=== PATIENT | female | born 2000 | race Hispanic/Latino ===

== ENCOUNTER 2018-11-08 08:39 | Day surgery (SDC) | payer MEDICAID ==
[~2018-11-08] VITALS: Ht 154.9 cm; Wt 52.2 kg
[~2018-11-08 08:39] MED LIST: LINA145C PO; PROPOFOL 10 MG/ML 20ML VIAL IV ONE; SODIUM CHLORIDE 0.9% 1000ML 1,000 ML IV ONE
[2018-11-08 09:23] VITALS: BP 104/73
[2018-11-08 10:02] VITALS: BP 86/43
[2018-11-08 10:07] VITALS: BP 108/46
[2018-11-08 10:12] VITALS: BP 99/57
[2018-11-08 10:17] VITALS: BP 98/62
== END 2018-11-08 10:40 | disposition home or self-care (01) ==
LOC: ENDO 08:39 → DAH 08:39 → ENDO 10:40
PROVIDERS: ATTEND Internal Medicine Gastroenterology
DX: K63.5 Polyp of colon (principal); K29.50 Unspecified chronic gastritis without bleeding; J45.909 Unspecified asthma, uncomplicated; K59.00 Constipation, unspecified; F17.210 Nicotine dependence, cigarettes, uncomplicated; Z79.899 Other long term (current) drug therapy; Z98.890 Other specified postprocedural states; Z72.89 Other problems related to lifestyle; Z82.5 Family history of asthma and other chronic lower respiratory diseases
CPT/HCPCS: 36415; 43239; 45380; 84703; 88305; A4606; J2704; J7030

== ENCOUNTER 2019-02-20 08:31 | Day surgery (SDC) | payer MEDICAID ==
[~2019-02-20] VITALS: Ht 154.9 cm; Wt 52.6 kg
[2019-02-20] VITALS (7 sets, daily range): BP systolic 99–105; BP diastolic 52–77
[~2019-02-20 08:31] MED LIST changes: -PROPOFOL 10 MG/ML 20ML VIAL IV ONE
[2019-02-20] MEDS ORDERED: PROPOFOL 10 MG/ML 20ML VIAL IV ONE (11:09)
[2019-02-20] MEDS ORDERED: SIMETHICONE 40 MG/0.6 ML ML ONE (11:34)
== END 2019-02-20 12:04 | disposition home or self-care (01) ==
LOC: DAH 08:31 → ENDO 08:31
PROVIDERS: ATTEND Internal Medicine
DX: R10.31 Right lower quadrant pain (principal); K59.04 Chronic idiopathic constipation; K62.89 Other specified diseases of anus and rectum; K82.9 Disease of gallbladder, unspecified; N83.292 Other ovarian cyst, left side; J45.909 Unspecified asthma, uncomplicated; Z79.899 Other long term (current) drug therapy; Z86.010 Personal history of colon polyps
CPT/HCPCS: 45380; 81025; 88305; A4215; A4221; A4222; A4223; A4606; A4615; A4663; J2704; J7030; 43239

== ENCOUNTER 2020-01-26 19:41 | Emergency (ER) | payer MEDICAID, OTHER ==
[~2020-01-26 19:41] MED LIST changes: -SODIUM CHLORIDE 0.9% 1000ML 1,000 ML IV ONE
[2020-01-26 20:17] LABS: APPEARANCE,URINE Clear (CLEAR); BILIRUBIN,URINE Negative (NEGATIVE); COLOR,URINE Yellow (YELLOW); GLUCOSE, URINE (UA) Negative (NEGATIVE); HCG,QUAL RESULT NEGATIVE (NEGATIVE); KETONES,URINE Negative (NEGATIVE); LEUKOCYTE ESTERASE ,URINE Negative (NEGATIVE); NITRATE,URINE Negative (NEGATIVE); OCCULT BLOOD,URINE Negative (NEGATIVE); PH,URINE 5.5 (5.0-8.0); PROTEIN,URINE Negative (NEGATIVE); UROBILINOGEN,URINE 0.2 mg/dL (0.2-1.0)
[2020-01-26] MEDS ORDERED: ACETAMINOPHEN 325 MG TAB ONE (20:19)
[2020-01-26 20:21] LABS: AMPHET/METH SCREEN,URINE NEGATIVE (NEGATIVE); BARBITURATE SCREEN, URINE NEGATIVE (NEGATIVE); BENZODIAZEPINES SCREEN,URINE NEGATIVE (NEGATIVE); CANNABINOID SCREEN,URINE NEGATIVE (NEGATIVE); COCAINE SCREEN,URINE NEGATIVE (NEGATIVE); OPIATE SCREEN,URINE NEGATIVE (NEGATIVE); PHENCYCLIDINE SCREEN,URINE NEGATIVE (NEGATIVE)
== END 2020-01-26 20:42 | disposition home or self-care (01) ==
LOC: EDH 19:41
DX: S09.90XA Unspecified injury of head, initial encounter (principal); Z72.0 Tobacco use; Z98.890 Other specified postprocedural states; X58.XXXA Exposure to other specified factors, initial encounter; Y93.89 Activity, other specified; Y92.89 Other specified places as the place of occurrence of the external cause; Y99.8 Other external cause status
CPT/HCPCS: 80305; 81003; 81025